=== PATIENT | female | born 1985 | race Caucasian/White ===

== ENCOUNTER 2017-04-23 01:53 | Outpatient (CLI) | payer BC ==
[~2017-04-23] VITALS: Ht 175.3 cm; Wt 78.6 kg
[~2017-04-23 01:53] MED LIST: PRENATAL VITAMI1 TA5 PO
--- NOTE | 2017-04-23 02:00 | NUR ---
Patient ambulatory to LR4, changed into gown, and FHR/TOCO monitors placed. Patient states she has had N/V/D and cant keep anything down, has right lower pelvic pressure/pain. Denies any leaking of fluid or vaginal bleeding. VSS and assessment completed. SVE per PCR.Kailey-/-2. Will continue to monitor.
[2017-04-23 02:05] VITALS: BP 118/69; PULSE 76; TEMP 97.8
[2017-04-23] MEDS ORDERED: SYNTHROID0.05 MG/TA PO (02:07)
[2017-04-23] MEDS ORDERED: PROTONIX20 MG PO (02:08)
[2017-04-23] MEDS ORDERED: FERROUSGLUC256MG (02:09)
--- NOTE | 2017-04-23 02:35 | NUR ---
IV started in left hand and LR infusing.
--- NOTE | 2017-04-23 02:50 | NUR ---
Discharge instructions reviewed with pt. Verbalizes understanding. Ambulatory off unit.
[2017-04-23 03:20] VITALS: BP 107/56; PULSE 62; TEMP 98.1
--- NOTE | 2017-04-23 03:35 | NUR ---
Pt states "I feel so much better. I'm ready to go home" Pt has been able to drink cup of ice water without nausea.
== END 2017-04-23 03:50 | disposition home or self-care (01) ==
LOC: LDRO 01:53
DX: O21.9 Vomiting of pregnancy, unspecified (principal); Z3A.38 38 weeks gestation of pregnancy
CPT/HCPCS: J2405; J7120

== ENCOUNTER 2017-05-04 07:11 | Inpatient (IN) | payer BC ==
[~2017-05-04] VITALS: Ht 172.7 cm; Wt 79.1 kg
[2017-05-04] VITALS (18 sets, daily range): BP systolic 94–131; BP diastolic 50–72; PULSE 58–86; TEMP 97.7–98.3
[~2017-05-04 07:11] MED LIST changes: +FERROUSGLUC256MG; +PROTONIX20 MG PO; +SYNTHROID0.05 MG/TA PO
[2017-05-04 08:33] LABS: BASO % 0.3 % (0.0-2.0); EOS % 0.3 % (0-4.0); GRAN # 7.9 (1.4-6.5); GRAN % 83.7 % (42.2-75.2); HEMATOCRIT 37.2 % (37.0-47.0); HEMOGLOBIN 12.2 g/dl (12.5-16.0); LYMPH % 10.3 % (20.0-51.0); MEAN CELL VOLUME 89 fl (80.0-100.0); MEAN CORPUSCULAR HEMOGLOBIN 29 pg (27.0-31.0); MEAN CORPUSCULAR HGB CONC 33 g/dl (33.0-37.0); MEAN PLATELET VOLUME 11.3 fl (7.4-10.4); MONO # 0.5 (0.1-0.6); PLATELET COUNT 149 K/mm3 (130-400); RED BLOOD COUNT 4.17 M/mm3 (4.10-5.30); REDCELL DISTRIBUTION WIDTH-CV 13.4 % (11.5-14.5); WHITE BLOOD COUNT 9.5 K/mm3 (4.8-10.8)
[2017-05-05 03:30] VITALS: BP 112/83; PULSE 60; TEMP 97.6
[2017-05-05 08:06] VITALS: BP 104/66; PULSE 72; TEMP 98.1
[2017-05-05] MEDS ORDERED: IBU600 MG PO (09:23)
[2017-05-05] MEDS ORDERED: PERCOCET 325 MG1 TA2 PO (09:24)
== END 2017-05-05 15:05 | disposition home or self-care (01) | DRG 775 ==
LOC: LDRO 07:11 → LDR 07:49 → OB 16:07
PROVIDERS: Obstetrics & Gynecology
PROC: 10E0XZZ Delivery of Products of Conception, External Approach (ICD-10-PCS; principal; 2017-05-04)
DX: O99.284 Endocrine, nutritional and metabolic diseases complicating childbirth (principal); E03.9 Hypothyroidism, unspecified; Z3A.39 39 weeks gestation of pregnancy; Z37.0 Single live birth
CPT/HCPCS: J2590; J2795; J7120

== ENCOUNTER 2019-06-04 06:53 | Inpatient (IN) | payer BC ==
[~2019-06-04] VITALS: Ht 172.7 cm; Wt 85.0 kg
[~2019-06-04 06:53] MED LIST changes: +IBU600 MG PO; +PERCOCET 325 MG1 TA2 PO
[2019-06-12] VITALS (12 sets, daily range): BP systolic 110–135; BP diastolic 58–88; PULSE 60–111; TEMP 98–98.7
--- NOTE | 2019-06-12 02:05 | NUR ---
Ambulatory to unit for labor, accompanied by spouse. Oriented to room, monitor, plan of care.
--- NOTE | 2019-06-12 02:30 | NUR ---
to edge of bed for epidural placement, see anesthesia record.
--- NOTE | 2019-06-12 02:45 | NUR ---
SVE as noted. Dr Neely notified to come to hospital.
--- NOTE | 2019-06-12 03:08 | NUR ---
SVE complete +[address] Neely into room, pt set up for delivery. [address] Neely. Pt and spouse loving and excited about . 0318 Placenta delivers spont and intact. 30units Pitocin in 500cc LR started at 333ml/hr per pump. 0323 Pericare performed, ice pack to perineum, bed together.
[2019-06-12 04:01] LABS: BASO % 0.2 % (0.0-2.0); EOS # 0.1 (0.0-0.7); EOS % 1.3 % (0-4.0); GRAN # 7.1 (1.4-6.5); HEMATOCRIT 39.9 % (37.0-47.0); HEMOGLOBIN 12.8 g/dl (12.5-16.0); LYMPH # 1.5 (1.2-3.4); LYMPH % 16.1 % (20.0-51.0); MEAN CELL VOLUME 90 fl (80.0-100.0); MEAN CORPUSCULAR HEMOGLOBIN 29 pg (27.0-31.0); MEAN CORPUSCULAR HGB CONC 32 g/dl (33.0-37.0); MEAN PLATELET VOLUME 12.3 fl (7.4-10.4); MONO # 0.7 (0.1-0.6); PLATELET COUNT 154 K/mm3 (130-400); RED BLOOD COUNT 4.46 M/mm3 (4.10-5.30); REDCELL DISTRIBUTION WIDTH-CV 14.3 % (11.5-14.5)
--- NOTE | 2019-06-12 04:45 | NUR ---
Epidural dc'd. IV loose at insertion site, dc'd. Up to bathroom with steady gait, voids good amount. to room via wheelchair.
--- NOTE | 2019-06-12 08:47 | NUR ---
Initial visit; Family resting, Seal Skinner left card of congratulations for the of their daughter and information regarding the availability of spiritual care at [facility].
[2019-06-13 08:00] VITALS: BP 116/67; PULSE 80; TEMP 97.4
[2019-06-13] MEDS ORDERED: IBU600 MG PO (09:03)
--- NOTE | 2019-06-13 10:45 | NUR ---
Discharge instructions given, pt verbalized understanding. No further questions noted. Bands matched and hugs tag removed.
== END 2019-06-13 10:55 | disposition home or self-care (01) | DRG 807 ==
LOC: LDR 06:53 → OB 06-12 05:36
PROVIDERS: ADMIT Obstetrics & Gynecology
PROC: 10E0XZZ Delivery of Products of Conception, External Approach (ICD-10-PCS; principal; 2019-06-12)
DX: O99.62 Diseases of the digestive system complicating childbirth (principal); Z37.0 Single live birth; K21.9 Gastro-esophageal reflux disease without esophagitis; O69.1XX0 Labor and delivery complicated by cord around neck, with compression, not applicable or unspecified; O77.0 Labor and delivery complicated by meconium in amniotic fluid; O99.284 Endocrine, nutritional and metabolic diseases complicating childbirth; E07.9 Disorder of thyroid, unspecified; Z3A.41 41 weeks gestation of pregnancy
CPT/HCPCS: J2590; J7120

== ENCOUNTER 2019-07-05 13:06 | Observation (INO) | payer BC ==
[2019-07-05] VITALS (12 sets, daily range): BP systolic 105–135; BP diastolic 55–73; PULSE 58–78; TEMP 97.8–98.4
[~2019-07-05] VITALS: Ht 175.3 cm; Wt 72.9 kg
--- NOTE | 2019-07-05 13:30 | NUR ---
Patient up to room 328, patient and family oriented to room. Patient is here for RLQ pain. States she hasnt had anything to eat since 0 on 07/04/19. Initial and 5 page complete. INT to right AC initiated in bono. Patient is 3wks post . Denies further needs at this time.
--- NOTE | 2019-07-05 13:30 | NUR ---
Contacted Dr. Hackett, patient in room. Orders entered into [facility] [employer] [facility].
--- NOTE | 2019-07-05 15:17 | NUR ---
EXPLOSIVE OPERATOR [employer]NADE student met with the patient to discuss a discharge plan. The patient lives in [place] with her and their five children. The patient does not use DME and reports independence with ADLs. The patient's PCP is Dr. Blankenship and patient receives medications from [facility]. The patient does not have advanced directives in the EMR. The patient plans to return home upon discharge. There are no addtional needs at this time.
--- NOTE | 2019-07-05 18:32 | NUR ---
Patient up from OR. Alert and oriented x 3. Lap sites x3 with edges well approximated. Denies pain at this time. Denies further needs at this time. Post op VSS. WIll report off to welder 2nd shift.
--- NOTE | 2019-07-05 19:30 | NUR ---
Patient complaining of pain to abdomen, requests Ibuprofen, 600mg given at this time. Abdomen soft, lap sites glued and dry. Reports she started spotting again, vpad provided.
--- NOTE | 2019-07-05 20:30 | NUR ---
Ambulating in hallway at this time. Gait steady.
[2019-07-06 00:50] VITALS: BP 107/62; PULSE 74; TEMP 98.2
--- NOTE | 2019-07-06 01:00 | NUR ---
Medicated with Ibuprofen 600mg po at this time for pain 4/10 to abdomen.
--- NOTE | 2019-07-06 03:00 | NUR ---
IV ANTIBIOTIC INFUSING TO RIGHT AC WITHOUT PROBLEM. RATES PAIN 4/10, DOES NOT WANT ANYTHING STRONGER AT THIS TIME.
[2019-07-06 03:54] VITALS: BP 102/52; PULSE 60; TEMP 98.2
--- NOTE | 2019-07-06 06:05 | NUR ---
MEDICATED WITH OXYCODONE 5MG PO FOR PAIN 6/10 TO ABDOMEN.
--- NOTE | 2019-07-06 08:30 | NUR ---
Patient alert and oriented, answers questions appropriately. See assessment. Abdomen soft, non tender, non distended. Lap sites with edges well approximated, no redness or drainage noted. +Flatus. Post op exercises reviewed. Requests to discharged. No c/o pain or discomfort at this time.
[2019-07-06] MEDS ORDERED: ROXICODONE 55 MG/TAB PO (08:39)
[2019-07-06 09:10] VITALS: BP 102/64; PULSE 78; TEMP 97.7
--- NOTE | 2019-07-06 09:46 | NUR ---
Discharge instructions reviewed with patient and spouse, verbalized understanding. Discharged ambulatory to auto/home with family at 0945.
== END 2019-07-06 09:45 | disposition home or self-care (01) ==
LOC: JCC 13:06 → SDCO 13:06 → JCC 13:07 → SDCO 17:45 → JCC 17:46
PROVIDERS: ADMIT Surgery
DX: K35.80 Unspecified acute appendicitis (principal); E03.9 Hypothyroidism, unspecified
CPT/HCPCS: OP; J1100; J1170; J1885; J2405; J2543; J2704; J3010; J7120

== ENCOUNTER 2022-02-16 19:46 | Inpatient (IN) | payer BC ==
[2022-02-16] VITALS (9 sets, daily range): BP systolic 113–132; BP diastolic 55–76; PULSE 56–75
[~2022-02-16] VITALS: Ht 175.3 cm; Wt 86.4 kg
[~2022-02-16 19:46] MED LIST changes: +ROXICODONE 55 MG/TAB PO
--- NOTE | 2022-02-16 19:50 | NUR ---
1950- PT TO UNIT AMBULATORY WITH HER MOTHER WITH COMPLAINTS OF CONTRACTIONS. PT STOPPED IN HALLWAY TO BREATH THROUGH CONTRACTION. ONCE IN ROOM PT CHANGED INTO GOWN. SVE OF /-2, BULGING BAG. 1951- PT REQUESTS TO STAND AT BEDSIDE, THIS NURSE ATTEMPTING TO APPLY EFM. FHT'S IN THE 130'S FOR APPROXIMATELY 1 MINUTE THEN BEGAN TRACING MATERNAL HR DUE TO MATERNAL POSITION AND MOVEMENT. PT REQUESTS EPIDURAL. 1956- IV AND IVF BOLUS STARTED. 2000- Danny KHAN CRNA IN ROOM FOR EPIDURAL PLACEMENT. PT SITTING ON BED FOR EPIDURAL. THIS NURSE HOLD US IN PLACE, FHT'S TRACING AT 135. 2004- SINGLE SHOT GIVEN BY Danny KHAN CRNA. PT TOLERATED WELL 2005- SROM OF CLEAR FLUID WHILE PT SITTING AT BEDSIDE FOR EPIDURAL. 2009- DURING CONTRACTION PT STATES SHE FEELS LIKE THE BABY IS COMING OUT. PT REPOSITIONED IN BED, SVE OF COMPLETE. 2010- DR TAYLOR IN ROOM FOR DELIVERY. 2013- SPONTANEOUS VAGINAL DELIVERY OF VIABLE BABY BOY. BABY TO MOTHER'S ABDOMEN, CORD CLAMPED BY DR. TAYLOR, CUT BY FOB. BABY CARES ASSUMED BY DANNY HORNE. 2018- SPONTANEOUS DELIVERY OF INTACT PLACENTA, PITOCIN STARTED AT 333ML/HR PER PROTOCOL. PERINEUM INTACT. 2024- RECOVERY STARTED.
[2022-02-16 21:02] LABS: BASO % 0.2 % (0.0-2.0); EOS % 0.3 % (0.0-4.0); GRAN # 9.3 K/mm3 (1.4-6.5); GRAN % 79.1 % (42.2-75.2); HEMATOCRIT 39.2 % (37.0-47.0); HEMOGLOBIN 12.5 g/dl (12.5-16.0); LYMPH # 1.7 K/mm3 (1.2-3.4); LYMPH % 14.8 % (20.0-51.0); MEAN CELL VOLUME 83 fl (80.0-100.0); MEAN CORPUSCULAR HEMOGLOBIN 26 pg (27-31); MEAN CORPUSCULAR HGB CONC 32 g/dl (33.0-37.0); MEAN PLATELET VOLUME 11.8 fl (7.4-10.4); MONO # 0.6 K/mm3 (0.1-0.6); MONO % 5.3 % (1.7-9.3); PLATELET COUNT 212 K/mm3 (130-400); RED BLOOD COUNT 4.75 M/mm3 (4.10-5.30); REDCELL DISTRIBUTION WIDTH-CV 16.5 % (11.5-14.5)
[2022-02-17 02:00] VITALS: BP 114/78; PULSE 64; TEMP 97.9
[2022-02-17] MEDS ORDERED: PROTONIX 40MG T40 MG PO (04:19)
[2022-02-17] MEDS ORDERED: NATURAL IRON65 MG PO (04:19)
[2022-02-17 07:35] VITALS: BP 111/73; PULSE 62; TEMP 97.9
--- NOTE | 2022-02-17 09:05 | NUR ---
Initial visit; Patient sleeping, Design Chief left card of congratulations for the of her son and information regarding the availability of Spiritual Care at [facility].
[2022-02-17] MEDS ORDERED: IBU600 MG PO (09:42)
[2022-02-17 16:10] VITALS: BP 112/61; PULSE 77; TEMP 97.2
[2022-02-17 19:00] VITALS: BP 111/72; PULSE 69; TEMP 97.8
--- NOTE | 2022-02-17 22:54 | NUR ---
1830 TOOK OVER CARE AT THIS TIME. MOM RESTING IN ROOM. UPDATED WHITE BOARD AND PLAN OF CARE. WILL CONTINUE TO MONITOR.
[2022-02-18 05:00] VITALS: BP 107/44; PULSE 55; TEMP 98.5
[2022-02-18 07:19] VITALS: BP 108/64; PULSE 76; TEMP 98.2
[2022-02-18] MEDS ORDERED: ROXICODONE 55 MG/TAB PO (09:16)
== END 2022-02-18 11:07 | disposition home or self-care (01) | DRG 807 ==
LOC: LDRO 19:46 → OB 19:58 → LDR 19:58 → OB 23:30
PROVIDERS: ADMIT Obstetrics & Gynecology
PROC: 10E0XZZ Delivery of Products of Conception, External Approach (ICD-10-PCS; principal; 2022-02-16)
DX: O24.420 Gestational diabetes mellitus in childbirth, diet controlled (principal); Z37.0 Single live birth; O99.02 Anemia complicating childbirth; D64.9 Anemia, unspecified; O99.284 Endocrine, nutritional and metabolic diseases complicating childbirth; E03.9 Hypothyroidism, unspecified; Z86.16 Personal history of COVID-19; Z3A.39 39 weeks gestation of pregnancy